=== PATIENT | male | born 1960 | race Caucasian/White ===

== ENCOUNTER 2019-11-30 12:34 | Outpatient (CLI) | payer OTHER, SELFPAY ==
--- NOTE | 2019-11-30 13:21 | ECG_ITS ---
Measurements Intervals [place] Rate: 64 P: -8 KS: 165 QRS: 48 QRSD: 103 T: 36 QT: 394 QTc: 407 Interpretive Statements SINUS RHYTHM NORMAL ECG Electronically Signed On 11-30-2019 15:04:31 CDT by Caesar Vargas D.O.
== END 2019-11-30 12:35 | disposition home or self-care (01) ==
PROVIDERS: PCP Internal Medicine; Visit Provider Internal Medicine
DX: I10 Essential (primary) hypertension (principal)
CPT/HCPCS: 93005

== ENCOUNTER → 2020-01-30 10:54 | Outpatient (REF) | payer OTHER, SELFPAY | LOC: ANHLAB 10:54 | PROVIDERS: PCP Internal Medicine; Visit Provider Nurse Practitioner | DX: C44.612 Basal cell carcinoma of skin of right upper limb, including shoulder (principal) | CPT/HCPCS: 88305 ==

== ENCOUNTER → 2020-04-01 08:08 | Outpatient (REF) | payer OTHER, SELFPAY | LOC: ANHLAB 08:08 | PROVIDERS: PCP Internal Medicine; Visit Provider Nurse Practitioner | DX: C44.612 Basal cell carcinoma of skin of right upper limb, including shoulder (principal) | CPT/HCPCS: 88305; 88331 ==

== ENCOUNTER 2021-04-23 09:49 | Outpatient (CLI) | payer OTHER, SELFPAY ==
--- NOTE | ~2021-04-23 | XR_ITS ---
XR foot LT min 3V DATE: 04/23/2021 10:06 INDICATION: Lateral fifth metatarsal area pain and swelling TECHNIQUE: 4 views COMPARISON: None FINDINGS: There is mild spurring at the tibiotalar joint. There is prominent plantar calcaneal enthes opathy without associated erosive change or periostitis. There is mild osteoarthritis at the first metatarsophalangeal joint. There is soft tissue swelling at the lateral aspect of the base of the fifth metatarsal bone. No frac ture, dislocation, periosteal reaction or bone destruction of the left foot. No erosive change. No osborne bcutaneous emphysema. IMPRESSION: Nonspecific soft tissue swelling over the lateral base of the fifth metatarsal bone No fracture or dislocation Osteoarthritis at tibiotalar and first metatarsophalangeal joints Plantar calcaneal enthesopathy Reviewed, dictated and finalized at location A. AG STITCHER
== END 2021-04-23 09:50 | disposition home or self-care (01) ==
LOC: ANHIMG 09:51
PROVIDERS: PCP Internal Medicine; Visit Provider Internal Medicine
DX: M19.072 Primary osteoarthritis, left ankle and foot (principal); M79.89 Other specified soft tissue disorders
CPT/HCPCS: 73630

== ENCOUNTER 2022-09-30 10:16 | Outpatient (CLI) | payer OTHER, SELFPAY ==
[2022-09-30 18:40] LABS: Kit Draw Collected
== END 2022-09-30 10:17 | disposition home or self-care (01) ==
LOC: ANHGOSHLAB 10:18
PROVIDERS: PCP Internal Medicine; Visit Provider Family Medicine
DX: Z00.00 Encounter for general adult medical examination without abnormal findings (principal); E55.9 Vitamin D deficiency, unspecified; E78.5 Hyperlipidemia, unspecified; E53.8 Deficiency of other specified B group vitamins; R73.9 Hyperglycemia, unspecified; I10 Essential (primary) hypertension
CPT/HCPCS: 36415

== ENCOUNTER 2022-10-15 03:01 | Emergency (ER) | payer OTHER, SELFPAY ==
--- NOTE | ~2022-10-15 | CT_ITS ---
Non-contrast CT scan of the Abdomen and Pelvis Clinical indication: Right flank pain Technique: 2.5 mm axial scans were obtained through the abdomen and pelvis without intravenous or or al contrast. Dose reduction technique was used on this scan by utilizing automated exposure control a nd iterative reconstruction technique. The dose-length product (DLP) was 403.47 mGy-cm. COMPARISON: 10/04/2009 Findings: Images through the lung bases reveal no abnormalities. There is a 3 mm stone in the mid right ureter (axial image 155), with mild right hydronephrosis. Usman tional 2 mm nonobstructing right renal stone present. 6 cm renal cyst present. No left renal or left ureteral stone. No left hydronephrosis. Several hepatic cysts are present. The spleen, pancreas, gallbladder, and adrenals appear normal. Th ere is no aortic aneurysm. There is no evidence of bowel obstruction. Images through the pelvis were performed. There is no evidence of ascites or lymphadenopathy. Urinary bladder unremarkable. Prostate gland and seminal vesicles are unremarkable. Impression: 3 mm mid right ureteral stone with mild right hydronephrosis. Additional 2 mm nonobstructing right renal stone. Reviewed, dictated and finalized at location . Impression: 3 mm mid right ureteral stone with mild right hydronephrosis. Additional 2 mm nonobstructing right renal stone.
[2022-10-15 03:12] VITALS: BP 150/83; PULSE 74; RESP 16; O2SAT 99
[2022-10-15 03:52] LABS: Basophils Absolute Auto 0.1 K/mm3 (0.0-0.1); Basophils Percent Auto 0.7 % (0.2-1.2); Eosinophils Absolute Auto 0.2 K/mm3 (0-0.3); Eosinophils Percent Auto 2.3 % (0-4.4); Hematocrit 40.2 % (42.0-52.0); Immature Granulocyte Absolute 0.02 K/mm3 (0.00-0.031); Immature Granulocyte Percent A 0.3 % (0-0.5); Lymphocytes Absolute Auto 2.67 K/mm3 (0.9-3.2); Lymphocytes Percent Auto 35.6 % (18.3-44.2); Mean Corpuscular HGB Conc 34.8 g/dl (32-36); Mean Corpuscular Volume 88.9 fl (80-100); Mean Platelet Volume 9.2 fl (7.4-10.4); Monocytes Absolute Auto 0.7 K/mm3 (0.1-0.6); Monocytes Percent Auto 9.2 % (2.6-8.5); Neutrophils Absolute Auto 3.9 K/mm3 (1.3-6.7); Neutrophils Percent Auto 51.9 % (45.5-73.1); Platelet Count Result 221 k/mm3 (150-375); Red Blood Count 4.52 M/mm3 (4.6-6.20); Red Cell Distribution Width 12.7 % (11.5-14.5); White Blood Count 7.5 K/mm3 (4.5-10.0)
[2022-10-15 03:58] LABS: Appearance Urine Clear (Clear); Bacteria Urine None Seen /hpf; Bilirubin Urine Negative (Negative); Color Urine Yellow (Yellow); Glucose Urine UA Negative (Negative); Ketones Urine Negative (Negative); Leukocyte Esterase Ur Negative LEU/UL (Negative); Nitrate Urine Negative (Negative); Non Pathogenic Casts 0-2; Protein Urine Negative (Negative); Specific Grav Ur 1.024 (1.001-1.035); Squamous Epithelial Cell Urine None seen /hpf (Few); WBC Urine 0-5 /hpf; pH Urine 5.5 (5.0-9.0)
[2022-10-15 03:59] LABS: Add Urine Microscopic? YES
[2022-10-15 04:01] LABS: Alanine Aminotransferase 20 U/L (6-50); Albumin Level 4.4 g/dL (3.5-5.1); Alkaline Phosphatase 43 U/L (38-126); Anion Gap 7 mmol/L (8-16); Aspartate Amino Transferase 32 U/L (17-59); Bilirubin,Total 0.9 mg/dL (0.2-1.3); Blood Urea Nitrogen 20 mg/dL (9-20); Calcium 8.7 mg/dL (8.4-10.2); Carbon Dioxide 26 mmol/L (22-30); Chloride 108 mmol/L (98-107); Estimated Glomerular Filt Rate > 60; Glucose 125 mg/dL (65-110); Potassium 3.5 mmol/L (3.4-5.0); Sodium 141 mmol/L (137-145)
--- NOTE | 2022-10-15 04:01 | ED.GENADULT ---
HPI - General Adult General Chief complaint: Urogenital-Male Stated complaint: R flank pain Time Seen by Provider: 10/15/22 03:17 History of Present Illness HPI narrative: This is a 62-year-old male with history of back pain and kidney stones presenting ED with right-sided flank pain. @ 1:00 a.m. it woke him up from sleep. Feels like his sharp pain in his right flank that is nonradiating 8 out 10 intensity and constant. There are no exacerbating or alleviating factors. Is not affected by movement. He has had nausea but no vomiting. No dysuria or hematuria. No fever chills chest pain difficulty breathing abdominal pain. Patient's urologist is Dr. Kenyon. On his last kidney stone he required lithotripsy. Related Data Home Medications Medication Instructions Recorded Confirmed finasteride 5 mg tablet 5 mg PO DAILY 03/01/19 09/30/22 diltiazem HCl 240 mg capsule,24 240 mg PO DAILY 09/30/22 09/30/22 hr,extended release losartan 100 mg tablet 100 mg PO DAILY 09/30/22 09/30/22 Allergies Allergy/AdvReac Type Severity Reaction Status Date / Time No Known Allergies Allergy Verified 10/15/22 03:06 [facility] Past Medical History Medical History Basal cell carcinoma (BCC) of right shoulder (~03/2020) BPH (benign prostatic hyperplasia) Dyslipidemia Essential hypertension Family history of melanoma History of colon polyps History of kidney stones kidney stone removal 10/2009 Hypovitaminosis D Osteoarthritis Surgical History Surgical History History of bilateral inguinal hernia repair (~09/2010) History of foot surgery (~10/2016) Right foot 10/2016 History of hernia repair 09/2010 History of umbilical hernia repair (~09/2010) Family History Family History Father Malignant neoplasm of prostate Hypertension Heart disease Cerebrovascular accident Mother Heart disease Grandparent Malignant neoplasm of prostate Cerebrovascular accident Social History Social History Smoking status: Never smoker Alcohol intake: current Substance use: never Substance use type: does not use Lack of Transportation: No Lack of Food: Never True Current Housing: I Have Housing Concerned About Future Housing: No Difficulty Paying Gas/Electric Bills: No Difficulty Paying for Meds: No Currently Unemployed: No Education: Master's Degree or Higher Difficulty w/ Childcare or Family Care: No Living arrangements: with family Additional living arrangements comments: Occupation/Education: retired Gender identity (if verbalized by the patient): Male Sexual Orientation (if Verbalized by the Patient): Straight or Heterosexual Agree to blood products: Yes Exam Narrative: APPEARANCE: No apparent distress. Head: atraumatic. EYES: EOMI, NOSE: Atraumatic NECK: Trachea midline RESPIRATORY: No increased rate of breathing , CARDIOVASCULAR: RRR, ABDOMINAL: Non-distended, soft nontender no guarding rebound, no CVA tenderness MUSCULOSKELETAl: No obvious deformities NEURO: Alert. Moving 4/4 extremities SKIN:: Warm, dry. Normal color PSYCHIATRIC: Normal affect Course Vital Signs Vital signs: Vital Signs Pulse Rate 74 10/15/22 03:12 Respiratory Rate 16 10/15/22 03:12 Blood Pressure 150/83 H 10/15/22 03:12 Pulse Oximetry 99 10/15/22 03:12 Pulse Rate 74 10/15/22 03:12 Respiratory Rate 16 10/15/22 03:12 Blood Pressure 150/83 H 10/15/22 03:12 Pulse Oximetry 99 10/15/22 03:12 Medical Decision Making MDM Narrative Medical decision making narrative: -Presentation: 62-year-old male presenting with right-sided flank pain. -DDX includes but is not limited to: MSK pain, kidney stone, AAA, , appendicitis -Co-morbidities complicating care: hist
[2022-10-15] MEDS: ONDANSETRON INJ 4 MG/2 ML VIAL IV PUSH ×2 (04:25→06:14)
[2022-10-15] MEDS: HYDROmorphone HCL INJ (*CRX) 1 MG/ML SYR 0.5 MG IV PUSH ×2 (04:26→06:03)
[2022-10-15] MEDS: ACETAMINOPHEN 500 MG TABLET 1000 MG PO (04:38)
[2022-10-15] MEDS: KETOROLAC 15 MG/ML VIAL (*BKC) IV PUSH (06:04)
[2022-10-15 06:15] VITALS: BP 155/74; PULSE 66; RESP 15; O2SAT 98
== END 2022-10-15 06:17 | disposition home or self-care (01) ==
PROVIDERS: Emergency Provider Emergency Medicine; PCP Family Medicine
DX: N20.0 Calculus of kidney (principal); E78.5 Hyperlipidemia, unspecified
CPT/HCPCS: 36415; 74176; 80053; 81001; 85025; 96374; 96375; 96376; 99284; A9270; J1170; J1885; J2405

== ENCOUNTER → 2022-10-21 13:20 | Outpatient (CLI) | payer OTHER, SELFPAY ==
--- NOTE | ~2022-10-21 | US_ITS ---
EXAMINATION: US renal BI DATE: 10/21/2022 13:40 INDICATION: Calculus of ureter TECHNIQUE: Multiple grayscale and Doppler ultrasound images of the kidneys were obtained. COMPARISON: CT abdomen pelvis 10/15/2022 FINDINGS: The right kidney measures 11.3 x 6.0 x 6.0 cm. The left kidney measures 11.8 x 5.5 x 5.6 cm. The kidn eys demonstrate normal parenchymal echogenicity. 2.0 cm right midpole and 6.4 cm right upper pole exo phytic simple cysts. 9 mm left midpole exophytic simple cyst. There is no hydronephrosis. The bladder is normal. IMPRESSION: Unremarkable renal sonogram findings. Bilateral simple renal cysts. Punctate right nephroliths descri bed in prior CT are not visualized sonographically. Reviewed, dictated and finalized at location K. IMPRESSION: Unremarkable renal sonogram findings. Bilateral simple renal cysts. Punctate ri ght nephroliths described in prior CT are not visualized sonographically.
== END ==
PROVIDERS: PCP Family Medicine; Visit Provider Urology
DX: N20.1 Calculus of ureter (principal)
CPT/HCPCS: 76775

== ENCOUNTER 2023-01-08 01:27 | Day surgery (SDC) | payer OTHER, SELFPAY ==
[2022-12-29 14:11] VITALS: BMI 32.1
--- NOTE | 2023-01-07 15:21 | PM.HPGS ---
History of Present Illness History of Present Illness Consent: Risks, benefits, and alternatives have been discussed and questions answered. Patient agrees to proceed with procedure. Chief complaint: hx of colon polyps Narrative: Karlo Das Jr. is a 62 year old male referred for colon cancer screening. He does have a history of polyps. Review of Systems Review of Systems: All systems reviewed & are unremarkable except as noted in HPI and below PMFSH Past Medical History Medical History Basal cell carcinoma (BCC) of right shoulder (~03/2020) BPH (benign prostatic hyperplasia) Dyslipidemia Essential hypertension Family history of melanoma History of colon polyps History of kidney stones kidney stone removal 10/2009 Hypovitaminosis D Osteoarthritis Surgical History Surgical History History of bilateral inguinal hernia repair (~09/2010) History of foot surgery (~10/2016) Right foot 10/2016 History of hernia repair 09/2010 History of umbilical hernia repair (~09/2010) Family History Family History Father Malignant neoplasm of prostate Hypertension Heart disease Cerebrovascular accident Mother Heart disease Grandparent Malignant neoplasm of prostate Cerebrovascular accident Social History Social History Smoking status: Never smoker Alcohol intake: current Substance use: never Substance use type: does not use Lack of Transportation: No Lack of Food: Never True Current Housing: I Have Housing Concerned About Future Housing: No Difficulty Paying Gas/Electric Bills: No Difficulty Paying for Meds: No Currently Unemployed: No Education: Master's Degree or Higher Difficulty w/ Childcare or Family Care: No Living arrangements: with family Additional living arrangements comments: Occupation/Education: retired Gender identity (if verbalized by the patient): Male Sexual Orientation (if Verbalized by the Patient): Straight or Heterosexual Agree to blood products: Yes Meds Home Medications and Allergies Home Medications Medication Instructions Recorded Confirmed Type finasteride 5 mg tablet 5 mg PO DAILY 03/01/19 12/29/22 History diltiazem HCl 240 mg capsule,24 240 mg PO DAILY 09/30/22 12/29/22 History hr,extended release losartan 100 mg tablet 100 mg PO DAILY 09/30/22 12/29/22 History rosuvastatin 5 mg tablet (Crestor) 5 mg PO .QOD #90 tabs 11/23/22 12/29/22 Rx Allergies Allergy/AdvReac Type Severity Reaction Status Date / Time No Known Allergies Allergy Verified 12/29/22 14:09 Exam Resp: Auscultation: clear to auscultation bilaterally Cardio: Rate: regular rate Rhythm: regular rhythm GI: GI Palp: Yes Soft to palpation and No Tenderness to palpation present (GI) Assessment and Plan Assessment and plan (1) Colon cancer screening: Code(s): Z12.11 - Encounter for screening for malignant neoplasm of colon Status: Acute Assessment and Plan: Colonoscopy with possible biopsy or polypectomy or cautery or injection of substances.
[2023-01-08 09:29] VITALS: BP 125/76; PULSE 70; RESP 16; TEMP 36.2; O2SAT 98
[2023-01-08] MEDS: LACTATED RINGERS 1,000 ML 150 ML IV CONT (09:36)
--- NOTE | 2023-01-08 09:49 | WPDANESEPPF ---
Anes - Initial Pre Proc Eval Procedure: Operation Date: 01/08/23 10:45 Proposed Procedures p Colonoscopy - Nirmal Albert MD Date/Time: 01/08/23 09:49 Surgeon: Nirmal Albert MD Pre Op Diagnosis: hx of colon polyps Patient Data Age: 62 Gender: M Height: 1.8 m Weight: 103.6 kg Last Vital Signs Temp 97.1 F L 01/08/23 09:29 Pulse 70 01/08/23 09:29 Resp 16 01/08/23 09:29 BP 125/76 01/08/23 09:29 Pulse Ox 98 01/08/23 09:29 O2 Del Method Room Air 01/08/23 09:29 Allergies Allergy/AdvReac Type Severity Reaction Status Date / Time No Known Allergies Allergy Verified 12/29/22 14:09 Home Medications Medication Instructions Recorded Confirmed Type finasteride 5 mg tablet 5 mg PO DAILY 03/01/19 12/29/22 History diltiazem HCl 240 mg capsule,24 240 mg PO DAILY 09/30/22 12/29/22 History hr,extended release losartan 100 mg tablet 100 mg PO DAILY 09/30/22 12/29/22 History rosuvastatin 5 mg tablet (Crestor) 5 mg PO .QOD #90 tabs 11/23/22 12/29/22 Rx Patient hx anesthesia problems: none Family hx anesthesia problems: none Results Review: All pre-operative results and documents have been reviewed as part of the pre-operative evaluation. [facility] Past Medical History Medical History Basal cell carcinoma (BCC) of right shoulder (~03/2020) BPH (benign prostatic hyperplasia) Dyslipidemia Essential hypertension Family history of melanoma History of colon polyps History of kidney stones kidney stone removal 10/2009 Hypovitaminosis D Osteoarthritis Surgical History Surgical History History of bilateral inguinal hernia repair (~09/2010) History of foot surgery (~10/2016) Right foot 10/2016 History of hernia repair 09/2010 History of umbilical hernia repair (~09/2010) Family History Family History Father Malignant neoplasm of prostate Hypertension Heart disease Cerebrovascular accident Mother Heart disease Grandparent Malignant neoplasm of prostate Cerebrovascular accident Social History Social History Smoking status: Never smoker Alcohol intake: current Substance use: never Substance use type: does not use Lack of Transportation: No Lack of Food: Never True Current Housing: I Have Housing Concerned About Future Housing: No Difficulty Paying Gas/Electric Bills: No Difficulty Paying for Meds: No Currently Unemployed: No Education: Master's Degree or Higher Difficulty w/ Childcare or Family Care: No Living arrangements: with family Additional living arrangements comments: Occupation/Education: retired Gender identity (if verbalized by the patient): Male Sexual Orientation (if Verbalized by the Patient): Straight or Heterosexual Agree to blood products: Yes Anes - Eval Final PreProcedure Day of Procedure 01/08/23 09:49 Patient weight: normal Heart: regular rate and rhythm Lungs: clear to auscultation Airway: Mallampati scale class II Neurological: alert and oriented Last oral intake: >/= 8 hours ASA classification: III Emergent: no Anesthetic plan: proceed Anesthesia type and monitoring: general GIVS and standard monitoring Results Review: All pre-operative results and documents have been reviewed as part of the pre-operative evaluation. Informed Consent: The patient's anesthetic plan and its attendant risks and benefits were discussed with the patient/family/POA. Questions were solicited and answers provided to the satisfaction of the patient/family/POA.
[2023-01-08 10:51] VITALS: BP 112/64; PULSE 60; RESP 15; O2SAT 99
[2023-01-08 11:01] VITALS: BP 117/76; PULSE 62; RESP 21; O2SAT 100
[2023-01-08 11:11] VITALS: BP 133/86; PULSE 60; RESP 19; O2SAT 100
== END 2023-01-08 11:21 | disposition home or self-care (01) ==
PROVIDERS: PCP Family Medicine; Visit Provider Internal Medicine Gastroenterology
PROC: 0DJD8ZZ Inspection of Lower Intestinal Tract, Via Natural or Artificial Opening Endoscopic (ICD-10-PCS; CPT 45378; principal; 2023-01-08 10:45)
DX: Z12.11 Encounter for screening for malignant neoplasm of colon (principal); D12.2 Benign neoplasm of ascending colon; K57.30 Diverticulosis of large intestine without perforation or abscess without bleeding; I10 Essential (primary) hypertension; E78.5 Hyperlipidemia, unspecified; N40.0 Benign prostatic hyperplasia without lower urinary tract symptoms
CPT/HCPCS: 45380; 88305; J2704; J7120

== ENCOUNTER → 2023-03-25 07:40 | Outpatient (CLI) | payer OTHER, SELFPAY ==
--- NOTE | ~2023-03-25 | XR_ITS ---
EXAMINATION: XR abdomen/kub 1V INDICATION: Calculus of ureter TECHNIQUE: Supine views of the abdomen were obtained on 2 radiographs. COMPARISON: 10/15/2022 FINDINGS: The previously described right ureteral stone is not definitely identified. Bowel contents project over the kidneys limiting sensitivity for renal stones. No urolithiasis is seen. A moderate v olume of colonic stool is present. There is mild osteoarthritis of the hips. There is severe lower christopher mbar spondylosis. IMPRESSION: 1. No urolithiasis identified. Reviewed, dictated and finalized at location D. LE STAPLER
== END ==
PROVIDERS: PCP Urology; Visit Provider Urology
DX: N20.1 Calculus of ureter (principal)
CPT/HCPCS: 74018

== ENCOUNTER 2023-03-31 08:32 | Outpatient (CLI) | payer OTHER, SELFPAY ==
[2023-03-31 19:07] LABS: Basophils Absolute Auto 0.1 K/mm3 (0.0-0.1); Basophils Percent Auto 1.1 % (0.2-1.2); Eosinophils Absolute Auto 0.1 K/mm3 (0-0.3); Eosinophils Percent Auto 2.3 % (0-4.4); Hematocrit 42.4 % (42.0-52.0); Hemoglobin 14.2 g/dL (14.0-18.0); Immature Granulocyte Absolute 0.02 K/mm3 (0.00-0.031); Immature Granulocyte Percent A 0.4 % (0-0.5); Lymphocytes Absolute Auto 1.64 K/mm3 (0.9-3.2); Lymphocytes Percent Auto 29.1 % (18.3-44.2); Mean Corpuscular HGB Conc 33.5 g/dl (32-36); Mean Corpuscular Hemoglobin 30.6 pg (26-34); Mean Corpuscular Volume 91.4 fl (80-100); Mean Platelet Volume 9.6 fl (7.4-10.4); Monocytes Absolute Auto 0.5 K/mm3 (0.1-0.6); Monocytes Percent Auto 9.2 % (2.6-8.5); Neutrophils Absolute Auto 3.3 K/mm3 (1.3-6.7); Neutrophils Percent Auto 57.9 % (45.5-73.1); Platelet Count Result 229 k/mm3 (150-375); Red Blood Count 4.64 M/mm3 (4.6-6.20); Red Cell Distribution Width 12.8 % (11.5-14.5); White Blood Count 5.6 K/mm3 (4.5-10.0)
[2023-03-31 19:22] LABS: Alanine Aminotransferase 21 U/L (6-50); Albumin Level 4.2 g/dL (3.5-5.1); Alkaline Phosphatase 47 U/L (38-126); Anion Gap 7 mmol/L (8-16); Aspartate Amino Transferase 39 U/L (17-59); Blood Urea Nitrogen 16 mg/dL (9-20); Calcium 9.1 mg/dL (8.4-10.2); Carbon Dioxide 25 mmol/L (22-30); Chloride 110 mmol/L (98-107); Cholesterol 156 mg/dL (0-200); Estimated Glomerular Filt Rate > 60; Glucose 100 mg/dL (65-110); HDL Direct 58 mg/dL; Potassium 4.5 mmol/L (3.4-5.0); Sodium 142 mmol/L (137-145); Triglycerides 77 mg/dL (<150)
[2023-03-31 19:35] LABS: LDL Cholesterol Direct 77 mg/dL
[2023-03-31 19:37] LABS: Vitamin D 25 Hydroxy 42.9 ng/mL
[2023-03-31 19:51] LABS: Prostate Specific Antigen 0.9 ng/mL (< OR = 4.0)
[2023-03-31 20:04] LABS: Hemoglobin A1C 5.3 % (<5.7)
== END 2023-03-31 08:33 | disposition home or self-care (01) ==
LOC: ANHGOSHLAB 08:36
PROVIDERS: PCP Urology; Visit Provider Nurse Practitioner Family
DX: E53.8 Deficiency of other specified B group vitamins (principal); Z00.00 Encounter for general adult medical examination without abnormal findings; R73.03 Prediabetes; E78.5 Hyperlipidemia, unspecified; Z13.29 Encounter for screening for other suspected endocrine disorder; E55.9 Vitamin D deficiency, unspecified; Z12.5 Encounter for screening for malignant neoplasm of prostate
CPT/HCPCS: 36415; 80053; 80061; 82306; 82607; 83036; 84153; 84443; 85025; G0103

== ENCOUNTER 2023-11-15 08:32 | Outpatient (CLI) | payer OTHER, SELFPAY ==
[2023-11-15 14:41] LABS: Basophils Absolute Auto 0.1 K/mm3 (0.0-0.1); Basophils Percent Auto 0.9 % (0.2-1.2); Eosinophils Absolute Auto 0.1 K/mm3 (0-0.3); Eosinophils Percent Auto 2.1 % (0-4.4); Hematocrit 42.6 % (42.0-52.0); Hemoglobin 14.6 g/dL (14.0-18.0); Immature Granulocyte Absolute 0.02 K/mm3 (0.00-0.031); Immature Granulocyte Percent A 0.4 % (0-0.5); Lymphocytes Absolute Auto 1.63 K/mm3 (0.9-3.2); Lymphocytes Percent Auto 28.6 % (18.3-44.2); Mean Corpuscular HGB Conc 34.3 g/dl (32-36); Mean Corpuscular Hemoglobin 31.5 pg (26-34); Mean Corpuscular Volume 91.8 fl (80-100); Mean Platelet Volume 9.8 fl (7.4-10.4); Monocytes Absolute Auto 0.4 K/mm3 (0.1-0.6); Monocytes Percent Auto 7.6 % (2.6-8.5); Neutrophils Absolute Auto 3.4 K/mm3 (1.3-6.7); Neutrophils Percent Auto 60.4 % (45.5-73.1); Platelet Count Result 236 k/mm3 (150-375); Red Blood Count 4.64 M/mm3 (4.6-6.20); Red Cell Distribution Width 13.1 % (11.5-14.5); White Blood Count 5.7 K/mm3 (4.5-10.0)
[2023-11-15 15:41] LABS: Vitamin D 25 Hydroxy 34.5 ng/mL
[2023-11-15 19:55] LABS: Alanine Aminotransferase 16 U/L (6-50); Albumin Level 4.4 g/dL (3.5-5.1); Alkaline Phosphatase 47 U/L (38-126); Anion Gap 9 mmol/L (4-12); Aspartate Amino Transferase 51 U/L (17-59); Bilirubin,Total 1.3 mg/dL (0.2-1.3); Blood Urea Nitrogen 14 mg/dL (9-20); Carbon Dioxide 25 mmol/L (22-30); Chloride 104 mmol/L (98-107); Cholesterol 158 mg/dL (0-200); Estimated Glomerular Filt Rate > 60; Glucose 94 mg/dL (65-110); HDL Direct 62 mg/dL; Potassium 4.2 mmol/L (3.4-5.0); Sodium 138 mmol/L (137-145); Triglycerides 96 mg/dL (<150)
[2023-11-15 20:08] LABS: LDL Cholesterol Direct 71 mg/dL
[2023-11-15 20:27] LABS: Prostate Specific Antigen 0.9 ng/mL (< OR = 4.0)
[2023-11-15 21:31] LABS: Hemoglobin A1C 5.7 % (<5.7)
== END 2023-11-15 08:33 | disposition home or self-care (01) ==
LOC: ANHGOSHLAB 08:34
PROVIDERS: PCP Family Medicine; Visit Provider Nurse Practitioner Family
DX: R73.03 Prediabetes (principal); E55.9 Vitamin D deficiency, unspecified; E78.5 Hyperlipidemia, unspecified; Z13.29 Encounter for screening for other suspected endocrine disorder; Z00.00 Encounter for general adult medical examination without abnormal findings; N40.0 Benign prostatic hyperplasia without lower urinary tract symptoms; Z12.5 Encounter for screening for malignant neoplasm of prostate; E53.8 Deficiency of other specified B group vitamins
CPT/HCPCS: 36415; 80053; 80061; 82306; 82607; 83036; 84153; 84443; 85025; G0103

== ENCOUNTER 2024-05-18 10:03 | Outpatient (CLI) | payer OTHER, SELFPAY ==
--- OUTSIDE RECORDS SUMMARY | 2024-05-18 10:27 | XMS_ITS | Clinical Summary ---
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 Gender Identity Not on file Sexual Orientation Not on file Plan of Treatment Health Maintenance Due Date Last Done Comments Hepatitis C Virus (HCV) Screening 1960 TdaP Immunization 1960 Colonoscopy 2005 Colorectal Cancer Screening 2005 Cologuard 2010 Immunochemical Fecal Occult Blood 2010 Pneumococcal Immunization (50+ years) (1 of 1 - PCV) 2010 Zoster Immunization (1 of 2) 2010 PSA Discussion 2015 Influenza Immunization (#1) 12/05/202301/04, 02/28/2017, 01/06/2016, Additional history exists SARS-COV-2 Immunization ( season) 2023 01/27/2021, 06/07/2020 Respiratory Syncytial Virus (RSV) Immunization (Adult) (1 - 1-dose 75+ series) 2035 Hepatitis B Immunization Aged Out No longer eligible based on patient's age to complete this topic Meningococcal Immunization (ACWY) Aged Out No longer eligible based on patient's age to complete this topic Pneumococcal Immunization Combined Aged Out No longer eligible based on patient's age to complete this topic Rotavirus Immunization Aged Out No lo nger eligible based on patient's age to complete this topic
--- OUTSIDE RECORDS SUMMARY | 2024-05-18 10:27 | XMS_ITS | Continuity of Care Document ---
Author Organization [facility] Address [address] [place] [address] Phone Care Team Providers Care Special Needs Teacher Name Role Phone Deandre Ricci DO Unavailable Unavailable Advance Directives Directive Yes / No Effective Date File Name No Information Encounters Encounter Description Practice Location Reason(s) For Visit Diagnoses Date Provider Providers Copied on Encounter [facility], [address], [place], [place], [id number], [place] tel:[phone] [facility] No Information Radhames Forbes. [address] [place], [address], [place]. tel: [phone] Family History Family Member Type Diagnosis Age At Onset No Information Payers Payer name Insurance type Covered libertarian ID Authoriza tion(s) No Information Social History Type Description Quantity Date Captured Comments Sex Male Smoking Status No Information Chief Complaint And Reason For Visit No Information Reason For Referral Reason For Referral No Information History Of Present Illness Encounter Date Complaint History Of Prese nt Illness No Information Functional Status Date Functional Assessmen t No Information Instructions Date Instruction Additional Infor mation No Information Assessments Type Assessment Date No Information Patient Care Teams Name Effective Dates (start - stop) Status Members No Information
--- OUTSIDE RECORDS SUMMARY | 2024-05-18 10:27 | XMS_ITS | Referral Summary ---
Author Organization [facility] Address [address] [place] [address] Care Team Providers Care Track Broom Operator Name Role Phone Macario Hebert MD Primary Care Provider [phone] [facility],non-owned Affiliates and Associated Physician Practices is amultiple site organization consisting of ambulatory clinics and hospital sitesin [place], [place], [place] and [place]. This disclosure is being madepursuant to the Care Everywhere program and may not contain all information available regarding this patient. Last updated 17.[facility] Allergies No known active allergies Medications * Be aware that medications may not be up to date on this document. Alwaysverify current medications with the patient. Medication Sig Dispensed Refills Start Date End Date Status losartan (COZAAR) 2.5 mg/ml Take by mouth once daily Active dilTIAZem coated beads 24hr (DILTIAZEM CD) 240 MG capsule Take 240 mg by mouth once daily Active aspirin (ASPIRIN) 81 MG tablet Take 81 mg by mouth once daily Active finasteride (PROSCAR) 5 MG tablet Take 5 mg by mouth once daily Active Social History Tobacco Use Types Packs/Day Years Used Date Smoking Tobacco: Never Assessed Sex and Gender Information Value Date Recorded Sex Assigned at Not on file Gender Identity Not on file Sexual Orientation Not on file Last Filed Vital Signs Vital Sign Reading Time Taken Comments Blood Pressure 118/70 05/18/2016 5:04 PM DIRECTOR OF DISTANCE LEARNING Pulse 80 05/18/2016 5:04 PM DIRECTOR OF DISTANCE LEARNING Temperature 36.8 C (98.3 F) 05/18/2016 5:04 PM DIRECTOR OF DISTANCE LEARNING Respiratory Rate 20 05/18/2016 5:04 PM DIRECTOR OF DISTANCE LEARNING Oxygen Saturation 98% 05/18/2016 5:04 PM DIRECTOR OF DISTANCE LEARNING Inhaled Oxygen Concentration - - Weight - - Height - - Body Mass Index - - Plan of Treatment Not on file Care Teams Track Broom Operator Relationship Specialty Start Date End Date Macario Hebert MD [address] [place] [id number] PCP - General Internal Medicine 05/18/16
--- OUTSIDE RECORDS SUMMARY | 2024-05-18 10:27 | XMS_ITS | Clinical Summary ---
Author Organization [facility] [employer] Address [address] [place] [address] Care Team Providers Care Farm Crew Leader Name Role Phone Macario Hebert MD Primary Care Provider [phone] Source Comments [facility] [employer],non-owned Affiliates and Associated Physician Practices is amultiple site organization consisting of ambulatory clinics and hospital sitesin [place], [place], [place] and [place]. This disclosure is being madepursuant to the Care Everywhere program and may not contain all information available regarding this patient. Last updated 17.[facility] [employer] Allergies No known active allergies Medications * [...] Comments Blood Pressure 118/70 05/18/2016 5:04 PM FISH HEADER Pulse 80 05/18/2016 5:04 PM FISH HEADER Temperature 36.8 C (98.3 F) 05/18/2016 5:04 PM FISH HEADER Respiratory Rate 20 05/18/2016 5:04 PM FISH HEADER Oxygen Saturation 98% 05/18/2016 5:04 PM FISH HEADER Inhaled Oxygen Concentration - - Weight - - Height - - Body Mass Index - - Plan of Treatment Health Maintenance Due Date Last Done Comments COLOGUARD (AGES 45-75) - COL ON CA SCREENING 1960 COLON MONITORING 1960 COLONOSCOPY - COLON CA SCREENING 1960 CT COLONOGRAPHY - COLON CA SCREENING 1960 Colorectal Cancer Screening 1960 FIT - COLON CA SCREENING 1960 FLEX SIG - COLON CA SCREENING 1960 LIPID TESTING 1960 HIV SCREENING 1975 HEPATITIS C SCREENING 05/16/1978 DTAP/TDAP/TD VACCINES (1 - Tdap) 1979 PNEUMOCOCCAL VACCINE 50+ (1 of 1 - PCV) 2010 ZOSTER VACCINE (1 of 2) 2010 COVID-19 VACCINE (1 - 2023-2 5 season) 2023 INFLUENZA VACCINE (#1) 2023 DEPRESSION SCREENING 04/05/2024 Respiratory Syncytial Virus (RSV) Vaccine Pt: or over 60 yrs (1 - 1-dose 75+ series) 2035 HEPATITIS B VACCINE Aged Out No longe r eligible based on patient's age to complete this topic HIB VACCINE Aged Out No longer eligi ble based on patient's age to complete this topic HPV VACCINE Aged Out No longer eligi ble based on patient's age to complete this topic MENINGOCOCCAL (Group B) VACCINE Aged Out No longer eligible based on patient's age to complete this topic MENINGOCOCCAL VACCINE Aged Out No gino kylee eligible based on patient's age to complete this topic PNEUMOCOCCAL VACCINE Aged Out No long er eligible based on patient's age to complete this topic Care Teams Farm Crew Leader Relationship Specialty Start Date End Date Macario Hebert MD [address] [place] [id number] PCP - General Internal Medicine 05/18/16
--- OUTSIDE RECORDS SUMMARY | 2024-05-18 10:27 | XMS_ITS | Patient Health Summary ---
Author Organization [facility] Address [address] [place] [address] Care Team Providers Care Notching Machine Operator Name Role Phone Macario Hebert MD Primary Care Provider [phone] Note from [facility],non-owned Affiliates and Associated Physician Practices is amultiple site organization consisting of ambulatory clinics and hospital sitesin [place], [place], [place] and [place]. This disclosure is being madepursuant to the Care Everywhere program and may not contain all information available regarding this patient. Last updated 17.[facility] Allergies No known active allergies Medications * Be aware that medications may not be up to date on this document. Alwaysverify current medications with the patient. * losartan (COZAAR) 2.5 mg/ml Take by mouth once daily * dilTIAZem coated beads 24hr (DILTIAZEM CD) 240 MG capsule Take 240 mg by mouth once daily * aspirin (ASPIRIN) 81 MG tablet Take 81 mg by mouth once daily * finasteride (PROSCAR) 5 MG tablet Take 5 mg by mouth once daily Social History Tobacco Use Types Packs/Day Years Used Date Smoking Tobacco: Never Assessed Sex and Gender Information Value Date Recorded Sex Assigned at Not on file Gender Identity Not on file Sexual Orientation Not on file Last Filed Vital Signs Vital Sign Reading Time Taken Comments Blood Pressure 118/70 05/18/2016 5:04 PM INDUSTRIAL GAS PRODUCTION OPERATOR Pulse 80 05/18/2016 5:04 PM INDUSTRIAL GAS PRODUCTION OPERATOR Temperature 36.8 C (98.3 F) 05/18/2016 5:04 PM INDUSTRIAL GAS PRODUCTION OPERATOR Respiratory Rate 20 05/18/2016 5:04 PM INDUSTRIAL GAS PRODUCTION OPERATOR Oxygen Saturation 98% 05/18/2016 5:04 PM INDUSTRIAL GAS PRODUCTION OPERATOR Inhaled Oxygen Concentration - - Weight - - Height - - Body Mass Index - - Care Teams Notching Machine Operator Relationship Specialty Start Date End Date Macario Hebert MD [address] [place] [phone] PCP - General Internal Medicine 05/18/16
[2024-05-18 19:46] LABS: Alanine Aminotransferase 21 U/L (6-50); Albumin Level 4.2 g/dL (3.5-5.1); Alkaline Phosphatase 46 U/L (38-126); Anion Gap 12 mmol/L (4-12); Aspartate Amino Transferase 38 U/L (17-59); Bilirubin,Total 1.2 mg/dL (0.2-1.3); Blood Urea Nitrogen 11 mg/dL (9-20); Calcium 8.9 mg/dL (8.4-10.2); Carbon Dioxide 22 mmol/L (22-30); Chloride 108 mmol/L (98-107); Estimated Glomerular Filt Rate > 60; Glucose 97 mg/dL (65-110); Potassium 4.3 mmol/L (3.4-5.0); Sodium 142 mmol/L (137-145)
[2024-05-18 20:23] LABS: Hemoglobin A1C 5.7 % (<5.7)
== END 2024-05-18 10:04 | disposition home or self-care (01) ==
LOC: ANHGOSHLAB 10:04
PROVIDERS: PCP Family Medicine; Visit Provider Family Medicine
DX: R73.03 Prediabetes (principal); I10 Essential (primary) hypertension
CPT/HCPCS: 36415; 80053; 83036